=== PATIENT | female | born 1990 | race Caucasian/White ===

== ENCOUNTER 2016-06-22 20:48 | Emergency (ER) | payer SELFPAY ==
--- NOTE | 2016-06-22 21:24 | NUR ---
PATIENT LEFT WITHOUT BEING SEEN BY DR. JUDGE. NO FURTHER CARE PROVIDED FOR PATIENT.
== END 2016-06-22 21:24 | disposition left against medical advice (07) ==
LOC: MED 20:48
DX: L02.91 Cutaneous abscess, unspecified (principal); Z53.21 Procedure and treatment not carried out due to patient leaving prior to being seen by health care provider

== ENCOUNTER 2016-12-05 15:55 | Emergency (ER) | payer MEDICAID ==
[~2016-12-05] VITALS: Ht 162.6 cm; Wt 59.0 kg
[2016-12-05 16:27] VITALS: BP 125/88
--- NOTE | 2016-12-05 19:25 | NUR ---
PATIENT LEFT WITHOUT BEING SEEN BY DR. NEGRETE. NO FURTHER CARE PROVIDED FOR PATIENT.
== END 2016-12-05 19:25 | disposition left against medical advice (07) ==
LOC: MED 15:55
DX: L02.415 Cutaneous abscess of right lower limb (principal); Z53.21 Procedure and treatment not carried out due to patient leaving prior to being seen by health care provider

== ENCOUNTER 2016-12-05 20:50 | Emergency (ER) | payer MEDICAID ==
[~2016-12-05] VITALS: Ht 162.6 cm; Wt 59.0 kg
[2016-12-05 20:58] VITALS: BP 128/83
--- NOTE | 2016-12-06 01:19 | NUR ---
AMBULATED TO ER BED 5
--- NOTE | 2016-12-06 01:25 | NUR ---
PATIENT PRESENTS TO ED WITH C/O CELLULITIS . PT DENIES N/V/D; AAOX4 WITH EVEN AND STEADY GAIT; LUNGS CLEAR BL; HR EVEN AND REGULAR; PT DENIES ANY FEVER, CP, SOB, OR COUGH AT THIS TIME; PATIENT STATES PAIN OF 5/10 AT THIS TIME; VSS; PATIENT POSITIONED FOR COMFORT; HOB ELEVATED; BEDRAILS UP X2; BED DOWN. ER MD MADE AWARE OF PT STATUS.
[2016-12-06] MEDS ORDERED: NACL 0.9% 1,000 ML IV ONE (01:45)
--- NOTE | 2016-12-06 03:03 | NUR ---
LAB AT BEDSIDE.
--- NOTE | 2016-12-06 03:05 | NUR ---
PT AMB W/O ASST TO [facility] FOR UA
[2016-12-06 03:16] LABS: HEMOGLOBIN 12.1 g/dL (12.0-16.0); RED CELL DISTRIBUTION WIDTH 14.4 % (11.6-13.7)
[2016-12-06 03:18] LABS: APPEARANCE,URINE HAZY (CLEAR); BILIRUBIN,URINE 1+ (NEGATIVE); BLOOD, URINE 3+ (NEGATIVE); LEUKOCYTE ESTERASE ,URINE NEGATIVE (NEGATIVE); NITRITE, URINE NEGATIVE (NEGATIVE); PH,URINE 5.5 (5.0-9.0); PROTEIN,URINE TRACE (NEGATIVE); UGLUCOSE NEGATIVE (NEGATIVE); UROBILINOGEN,URINE 0.2 EU/dL (0.2 - 1)
--- NOTE | 2016-12-06 03:21 | NUR ---
ER MD DR DIXON GAVE ORDER TO HOLD ALL IV AND IV MEDS.
[2016-12-06 03:22] LABS: HEMATOCRIT 37.3 % (36-48); MEAN CORPUSCULAR HEMOGLOBIN 26 pg (27-31); MEAN CORPUSCULAR HGB CONC 33 g/dL (33-37); MEAN CORPUSCULAR VOLUME 81 fL (80-94); PLATELET COUNT (AUTO) 424 K/uL (140-450)
--- NOTE | 2016-12-06 03:22 | NUR ---
PT SENT TO [facility] VIA W/C AAOX4 AT THIS TIME.
[2016-12-06 03:24] LABS: COLOR,URINE AMBER (YELLOW)
[2016-12-06 03:26] LABS: ICTOTEST NEGATIVE (NEGATIVE)
[2016-12-06 03:26] LABS: ANION GAP 11.6 (8-16); CALCIUM 8.9 mg/dL (8.5-10.1); CARBON DIOXIDE 30.2 mmol/L (21-32); CREATININE 0.8 mg/dL (0.6-1.3); POTASSIUM 3.8 mmol/L (3.5-5.1)
[2016-12-06 03:28] LABS: MUCUS,URINE 3+ /LPF (None Seen)
[2016-12-06 03:29] LABS: BACTERIA,URINE 2+ /HPF (None Seen); RBC,URINE 80-100 /HPF (0-5)
[2016-12-06 03:32] LABS: ALBUMIN 3.7 g/dL (3.4-5.0); TOTAL BILIRUBIN 0.4 mg/dL (0.0-1.0); TOTAL PROTEIN, SERUM 8.1 g/dL (6.4-8.2)
[2016-12-06 03:39] LABS: LYMPHOCYTES % (MANUAL) 34 % (20-46); MONOCYTES % (MANUAL) 6 % (5-12); NEUTROPHILS % (MANUAL) 60 (43-65)
[2016-12-06 03:45] VITALS: BP 128/83
[2016-12-06 03:45] LABS: LACTIC ACID 1.2 mmol/L (0.4-2.0)
--- NOTE | 2016-12-06 03:45 | NUR ---
Patient discharged with v/s stable. Written and verbal after care instructions given and explained. Patient verbalized understanding. Ambulatory with steady gait. All questions addressed prior to discharge. Advised to follow up with PMD.
[2016-12-07 13:25] LABS: HEPATITIS A ANTIBODY IGM Negative (Negative); HEPATITIS A ANTIBODY TOTAL Negative (Negative); HEPATITIS B CORE AB TOTAL Negative (Negative); HEPATITIS B CORE, IGM Negative (Negative); HEPATITIS B SURFACE AB Reactive (.); HEPATITIS B SURFACE ANTIGEN Negative (Negative); HIV 1/0/2 ABS, QUAL Non Reactive (Non Reactive)
== END 2016-12-06 03:45 | disposition home or self-care (01) ==
LOC: MED 20:50
DX: L03.116 Cellulitis of left lower limb (principal); F12.20 Cannabis dependence, uncomplicated
CPT/HCPCS: 36415; 71010; 80053; 81001; 81025; 83605; 84484; 85025; 86702; 86704; 86706; 86708; 86709; 86803; 87040; 87086; 87340; 93005; 99285

== ENCOUNTER 2022-11-23 22:13 | Emergency (ER) | payer MEDICAID ==
[~2022-11-23] VITALS: Ht 162.6 cm; Wt 59.0 kg
[2022-11-23 22:34] VITALS: BP 129/86; PULSE 100; RESP 18; TEMP 98.2; O2SAT 99
--- NOTE | 2022-11-23 22:40 | NUR ---
PT TRIAGED AND PLACED IN [facility].
--- NOTE | 2022-11-23 23:00 | NUR ---
CALLED FOR PT IN [facility]; UNABLE TO LOCATE.
[2022-11-23 23:03] LABS: APPEARANCE,URINE SL CLOUDY (CLEAR); BILIRUBIN,URINE 1+ (NEGATIVE); BLOOD, URINE NEGATIVE (NEGATIVE); COLOR,URINE YELLOW (YELLOW); LEUKOCYTE ESTERASE ,URINE NEGATIVE (NEGATIVE); NITRITE, URINE NEGATIVE (NEGATIVE); UGLUCOSE NEGATIVE (NEGATIVE)
--- NOTE | 2022-11-23 23:10 | NUR ---
CALLED FOR PT IN [facility] X2; UNABLE TO LOCATE.
[2022-11-23 23:13] LABS: BARBITURATE, URINE NEGATIVE ng/ml (NEG <=200); BENZODIAZEPINE, URINE POSITIVE ng/mL (NEG <=200); CANNABINOID, URINE NEGATIVE ng/mL (NEG <=50); COCAINE, URINE NEGATIVE ng/mL (NEG <=300); PHENCYCLIDINE SCREEN,URINE NEGATIVE ng/mL (NEG <=25)
[2022-11-23 23:14] LABS: OPIATE, URINE POSITIVE ng/mL (NEG <=2000)
--- NOTE | 2022-11-23 23:20 | NUR ---
PT ELOPED FROM ED
== END 2022-11-24 00:41 | disposition left against medical advice (07) ==
LOC: MED 22:13
DX: R19.7 Diarrhea, unspecified (principal); R11.0 Nausea; Z53.20 Procedure and treatment not carried out because of patient's decision for unspecified reasons
CPT/HCPCS: 80305; 81003; 81025; 99281; 99283

== ENCOUNTER 2022-11-24 17:37 | Emergency (ER) | payer MEDICAID ==
[~2022-11-24] VITALS: Ht 162.6 cm; Wt 63.5 kg
[2022-11-24 18:11] VITALS: BP 143/97; PULSE 98; RESP 20; TEMP 98; O2SAT 99
[2022-11-24 20:05] LABS: BASOPHILS # (AUTO) 0.1 K/uL (0.00-0.22); BASOPHILS % (AUTO) 0.6 % (0.0-2.0); EOSINOPHILS # (AUTO) 0.1 K/uL (0-0.4); EOSINOPHILS % (AUTO) 0.8 % (0.0-4.0); HEMATOCRIT 34.4 % (36-48); HEMOGLOBIN 10.9 g/dL (12.0-16.0); LYMPHOCYTES # (AUTO) 2.7 K/uL (2.5-16.5); LYMPHOCYTES % (AUTO) 22.3 % (20.5-51.1); MEAN CORPUSCULAR HEMOGLOBIN 24 pg (27-31); MEAN CORPUSCULAR HGB CONC 32 g/dL (33-37); MEAN CORPUSCULAR VOLUME 75.4 fL (80-94); MONOCYTES % (AUTO) 8.1 % (1.7-9.3); NEUTROPHILS # (AUTO) 8.3 K/uL (1.8-7.7); NEUTROPHILS % (AUTO) 68.2 % (42.2-75.2); PLATELET COUNT (AUTO) 521 K/uL (140-450); RED BLOOD CELL COUNT(AUTO) 4.57 MIL/uL (4.20-5.40); RED CELL DISTRIBUTION WIDTH 15.9 % (11.6-13.7); WHITE BLOOD COUNT (AUTO) 12.1 K/uL (4.8-10.8)
[2022-11-24 20:25] LABS: ALBUMIN 3.5 g/dL (3.4-5.0); ANION GAP 13.9 (8-16); CARBON DIOXIDE 26.2 mmol/L (21-32); CREATININE 0.8 mg/dL (0.6-1.3); POTASSIUM 3.1 mmol/L (3.5-5.1); THYROID STIMULATING HORMONE 1.56 uIU/mL (0.34-3.74); TOTAL BILIRUBIN 0.4 mg/dL (0.0-1.0)
--- NOTE | 2022-11-24 21:40 | NUR ---
Called patient from lobby for D/C no response.
== END 2022-11-24 21:48 | disposition home or self-care (01) ==
LOC: MED 17:37
DX: R19.7 Diarrhea, unspecified (principal); R53.81 Other malaise; F11.10 Opioid abuse, uncomplicated; D64.9 Anemia, unspecified
CPT/HCPCS: 36415; 80053; 81002; 81025; 84443; 85025; 99283

== ENCOUNTER 2024-01-28 11:57 | Emergency (ER) | payer MEDICAID, OTHER ==
[~2024-01-28] VITALS: Ht 162.6 cm; Wt 72.6 kg
[2024-01-28 12:02] VITALS: BP 130/80; PULSE 105; RESP 16; TEMP 97.4; O2SAT 100
[2024-01-28] MEDS ORDERED: CEPH-588 PO (12:48)
[2024-01-28 13:21] VITALS: BP 130/80; PULSE 105; RESP 16; TEMP 97.4; O2SAT 100
== END 2024-01-28 13:21 | disposition home or self-care (01) ==
LOC: MED 11:57
DX: L02.416 Cutaneous abscess of left lower limb (principal); L02.415 Cutaneous abscess of right lower limb; L03.116 Cellulitis of left lower limb; L03.115 Cellulitis of right lower limb; F17.200 Nicotine dependence, unspecified, uncomplicated
CPT/HCPCS: 99283